=== PATIENT | female | born 1955 | race Hispanic/Latino ===

== ENCOUNTER 2018-04-17 08:54 | Outpatient (RCR) | payer OTHER ==
[~2018-04-17 08:54] MED LIST: Z.0.ASPIRIN325 MG PO; Z.0.BENICAR40 MG PO; Z.0.PENTOXIFYLLINE40 PO; Z.1.HYDROCHLOROTH12. PO; [UNRECOGNIZED DRUG - OTHER] PO
== END 2018-04-19 ==
LOC: PT 08:54
PROVIDERS: ATTEND Specialist
DX: M17.11 Unilateral primary osteoarthritis, right knee (principal); E66.01 Morbid (severe) obesity due to excess calories

== ENCOUNTER 2018-05-18 08:54 | Outpatient (RCR) | payer OTHER | END 2018-05-20 | LOC: PT 08:54 | PROVIDERS: ATTEND Specialist | DX: M17.11 Unilateral primary osteoarthritis, right knee (principal); M62.81 Muscle weakness (generalized); R26.9 Unspecified abnormalities of gait and mobility; E66.01 Morbid (severe) obesity due to excess calories | CPT/HCPCS: 97139 ==

== ENCOUNTER 2024-07-19 09:00 | Outpatient (RCR) | payer OTHER | END 2024-07-20 | LOC: PT 09:00 | PROVIDERS: ATTEND Specialist | DX: M75.102 Unspecified rotator cuff tear or rupture of left shoulder, not specified as traumatic (principal) ==

== ENCOUNTER → 2024-08-20 | Outpatient (RCR) | payer OTHER | LOC: PT 07-22 07:23 | PROVIDERS: ATTEND Specialist | DX: M75.102 Unspecified rotator cuff tear or rupture of left shoulder, not specified as traumatic (principal) ==

== ENCOUNTER 2024-08-27 07:42 | Outpatient (RCR) | payer OTHER | END 2024-09-17 | LOC: PT 07:42 | PROVIDERS: ATTEND Specialist | DX: M75.102 Unspecified rotator cuff tear or rupture of left shoulder, not specified as traumatic (principal) ==